=== PATIENT | male | born 1935 | race African-American/Black ===

== ENCOUNTER 2016-11-26 08:34 | Day surgery (SDC) | payer OTHER ==
[2016-11-25 15:22] VITALS: BMI 26.9
--- NOTE | 2016-11-26 11:46 | HP ---
History & Physical Update - History History: No Change - Physical Physical: No Change - Assessment Assessment: No Change - Plan Plan: No Change (Patient presents for temporal artery biopsy with Dr. Bull on 11/26/16. There are no changes from the H&P performed by Dr. Munguia on 11/24/16, present in the paper chart.)
[2016-11-26] MEDS ORDERED: PROPOFOL 20 ML ONE ×2 (12:18)
[2016-11-26] MEDS ORDERED: ONDANSETRON 4 MG/2 ML VIAL IVPUSH PRN (12:27)
[2016-11-26] MEDS ORDERED: oxyCODONE HCL 5 MG TABLET PO PRN (12:27)
[2016-11-26] MEDS ORDERED: DEXAMETHASONE SOD PHOSPHATE 4 MG/1 ML VIAL ONE (12:29)
[2016-11-26] MEDS ORDERED: KETOROLAC TROMETHAMINE 30 MG/1 ML VIAL ONE (12:29)
[2016-11-26] MEDS ORDERED: LACTATED RINGERS SOLUTION 1,000 ML IV SCH (12:30)
[2016-11-26] MEDS ORDERED: LIDOCAINE HCL 1%, 10 MG/ML (20ML VIAL) IJ ONE (12:55)
--- NOTE | 2016-11-26 13:16 | HP ---
Admitting History and Physical - Admission History of Present Illness: 81 year old male referred by Dr. Hernandez Munguia for possible temporal arteritis. He is a 81 yo male with compliant of right sided headache and pressure behing his right eye. He states his vision was blurry but is better now. He has pain when chewing due to ill-fitting dentures. He denies a history of stroke or TIA. He was started on Prednisone 60 mg/day 2 days ago. History Source: Patient, Medical Record Limitations to Obtaining History: No Limitations - Past Medical History Gastrointestinal: Yes: GERD Endocrine: Yes: Diabetes Mellitus - Smoking History Smoking history: Never smoked Have you smoked in the past 12 months: No Aproximately how many cigarettes per day: 0 - Alcohol/Substance Use Hx Alcohol Use: No Home Medications - Allergies Allergies/Adverse Reactions: Allergies Allergy/AdvReac Type Severity Reaction Status Date / Time No Known Allergies Allergy Verified 11/26/16 09:56 - Home Medications Home Medications: Ambulatory Orders Docusate Sodium [Colace -] 100 mg PO TID #0 capsule 03/14/13 Omeprazole [Prilosec (RX)] 20 mg PO DAILY #0 capsule 03/14/13 Prednisone [Deltasone -] 10 mg PO TID 11/25/16 Metformin HCl [Metformin HCl ER] 500 mg PO DAILY 11/26/16 Oxybutynin Chloride [Ditropan] 15 mg PO DAILY 11/26/16 Tramadol HCl/Acetaminophen [Tramadol-Acetaminophn 37.5-325] 1 each PO DAILY PRN 11/26/16 Physical Examination Vital Signs: Vital Signs Temperature 97.8 F 11/26/16 09:45 Pulse Rate 67 11/26/16 09:45 Respiratory Rate 18 11/26/16 09:45 Blood Pressure 128/72 11/26/16 09:45 O2 Sat by Pulse Oximetry (%) 97 11/26/16 09:49 Constitutional: Yes: No Distress, Calm Eyes: Yes: Conjunctiva Clear, EOM Intact HENT: Yes: Normocephalic Neck: Yes: Supple Cardiovascular: Yes: Regular Rate and Rhythm Respiratory: Yes: Regular Gastrointestinal: Yes: Normal Bowel Sounds Edema: No Problem List - Problems (1) Temporal arteritis Assessment/Plan: Elderly man with headache and elevated ESR. Plan biopsy of right temporal artery. Code(s): M31.6 - OTHER GIANT CELL ARTERITIS
[2016-11-26] MEDS ORDERED: ACETAMINOPHEN 325 MG TABLET (FP) PO PRN (13:17)
--- NOTE | 2016-11-26 13:34 | OP ---
Operative Note - Note: Operative Date: 11/26/16 Pre-Operative Diagnosis: R/O temporal arteritis Operation: Biopsy right temporal artery Findings: Tortuous dilated artery. Post-Operative Diagnosis: Same as Pre-op Surgeon: Terell Thomas Anesthesiologist/BUFFER MACHINE: Carolina Graves Anesthesia: Fractional Estimated Blood Loss (mls): 10 Operative Report Dictated: Yes
[2016-11-26 16:25] VITALS: TEMP 97.6
[2016-11-26] MEDS ORDERED: ACETAMINOPHEN 325 MG TABLET (FP) ONE (17:34)
[2016-11-26 18:22] VITALS: BP 134/78; PULSE 54
--- NOTE | 2016-11-27 10:28 | OP ---
DATE OF OPERATION: 11/26/2016 SURGEON: Terell Loya MD PROCEDURE: Biopsy, right superficial temporal artery. PREOPERATIVE DIAGNOSIS: Rule out temporal arteritis. POSTOPERATIVE DIAGNOSIS: Rule out temporal arteritis. ANESTHESIA: Fractional. ANESTHESIOLOGIST: DELFIN Graves OPERATIVE FINDINGS: The superficial temporal artery was tortuous and somewhat dilated. OPERATIVE PROCEDURE: Following routine patient identification with site and side verification, intravenous sedation was established. The right alevism was prepped with ChloraPrep. Xylocaine 1% was infiltrated over the palpable pulse in the temporal artery. Skin incision was made over the vessel and carried down through the subcutaneous tissues, using cautery for hemostasis. The artery was carefully dissected. All side branches were ligated with silk ties and divided. The vein segment was then ligated proximally and distally, and the intervening portion excised and sent to pathology. The wound was irrigated and closed with interrupted suture of 4-0 Vicryl on the subcutaneous tissues and running subcuticular suture of 4-0 Biosyn on the skin. Dermabond glue was applied as a dressing. The patient was taken to the recovery room in stable condition. TERELL LOYA M.D. [id number]
--- NOTE | 2016-11-27 12:17 | PATH ---
Surgical Pathology Report Patient Name: EDWIN MCCLELLAND Med. Rec. #: [id number] /Age/Gender: 1935 (Age: 81) / M Account: [id number] Location: [facility] Taken: 11/26/2016 Received: 11/26/2016 Reported: 11/27/2016 Physicians: Terell Thomas M.D. 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 MULTIPLE LEVELS EXAMINED. Electronically Signed Zain Silva M.D. Gross Description Received in formalin, labeled "right temporal artery biopsy" is a 2.6 cm in length temporal artery biopsy. The specimen is serially sectioned and entirely submitted in 2 cassettes. DL/11/26/2016 saudi/11/26/2016
== END 2016-11-26 17:45 | disposition home or self-care (01) ==
LOC: JASU-SURG 08:34
PROVIDERS: ATTEND Surgery
PROC: 03BS0ZX Excision of Right Temporal Artery, Open Approach, Diagnostic (ICD-10-PCS; principal; 2016-11-26 12:00)
DX: M31.6 Other giant cell arteritis (principal)
CPT/HCPCS: 88305-TC; 94760

== ENCOUNTER 2017-05-14 22:00 | Emergency (ER) | payer OTHER ==
[2017-05-14 22:07] VITALS: BMI 26.9
[2017-05-14 23:45] LABS: BASOPHIL 0.3 % (0-2.0); EOSINOPHIL 0.4 % (0-4.5); MCH 33.2 pg (25.7-33.7); MCHC 33.5 g/dl (32.0-35.9); MEAN CELL VOLUME 99.3 fl (80-96); MEAN PLT VOLUME 10.2 fl (7.5-11.1); NEUTROPHILS 63.9 % (42.8-82.8); PLATELET COUNT 146 K/MM3 (134-434); RDW 12.5 % (11.9-15.9); WHITE BLOOD COUNT 6.9 K/mm3 (4.0-10.0)
[2017-05-15 00:12] LABS: ALBUMIN 3.2 g/dl (3.4-5.0); ANION GAP 7 (8-16); BILIRUBIN,TOTAL 0.5 mg/dL (0.2-1.0); CALCIUM 8.2 mg/dL (8.5-10.1); CO2 28 mmol/L (21-32); CREATININE 1.2 mg/dL (0.7-1.3); GLUCOSE,RANDOM 113 mg/dL (74-106); SGPT/ALT 17 U/L (12-78); TOT PROT 6.8 g/dl (6.4-8.2)
[2017-05-15 00:22] LABS: ALK PHOS 95 U/L (45-117); SGOT/AST 24 U/L (15-37)
[2017-05-15 00:23] LABS: TROPONIN I < 0.02 ng/ml (0.00-0.05)
--- NOTE | 2017-05-15 00:55 | PDOC ---
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 Patient was seen by Dr. Mcarthur and Rx: Carbamazepine 100mg, Tramadol 37.5-325mg prn with no significant improvement. Patient states headache comes and goes, and that Dr. Mcarthur is requesting CT-Scan of Head. Patient also c/o swelling to face after taking medications today but is unsure which medications caused swelling. Denies trouble breathing, cough, tongue swelling, CP, Abd pain, n/v/d, or any other complaints at this time. Severity: mild Modifying Factors: worse with: cold therapy, eating, immobilization, medication , movement, rest, other Associated Symptoms: denies: denies symptoms, chest pain, cough, diaphoresis, fever/chills, headaches, loss of appetite, malaise, nausea/vomiting, rash, seizure, shortness of breath, syncope, weakness, other Aspirin Received prior to arrival: No: no aspirin today, unknown, 81 mg x 1, 81 mg x 2, 81 mg x 3, 81 mg x 4, 325 mg x 1, provided at home, provided by EMS, provided by ED Past History - Travel Traveled outside of the country in the last 30 days: No Close contact w/someone who was outside of country & ill: No - Past Medical History Allergies/Adverse Reactions: Allergies Allergy/AdvReac Type Severity Reaction Status Date / Time No Known Allergies Allergy Verified 05/14/17 22:05 Home Medications: Ambulatory Orders Oxybutynin Chloride [Ditropan] 15 mg PO DAILY 11/26/16 Tramadol HCl/Acetaminophen [Tramadol-Acetaminophn 37.5-325] 1 each PO DAILY PRN 11/26/16 Carbamazepine 100 mg PO BID 05/14/17 Gabapentin 300 mg PO TID 05/14/17 Famotidine [Pepcid -] 40 mg PO BID #14 tablet 05/15/17 Prednisone 10 mg PO ASDIR #21 tablet 05/15/17 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) Cancer: Yes (prostate w/ seeds) GI Disorders: Yes (DIVERTICULOSIS;GASTRITIS;REFLUX) HTN: Yes Suicide Attempt (Hx): No - Surgical History Appendectomy: Yes () - Psycho/Social/Smoking Cessation Hx Anxiety: No Suicidal Ideation: No Smoking Status: No Smoking History: Never smoked Have you smoked in the past 12 months: No Number of Cigarettes Smoked Daily: 0 Hx Alcohol Use: No Drug/Substance Use Hx: No Substance Use Type: None Hx Substance Use Treatment: No Review of Systems - Review of Systems Able to Perform ROS?: Yes Is the patient limited Jamaican proficient: No HEENTM: Yes: Other (Facial Swelling) Respiratory: No: Shortness of Breath, Stridor, Wheezing Cardiac (ROS): No: Chest Pain, Lightheadedness, Palpitations, Syncope, Chest Tightness ABD/GI: No: Abdominal Distended, Constipated, Diarrhea, Nausea, Poor Appetite, Poor Fluid Intake, Vomiting, Abdominal cramping : No: Dysuria, Frequency, Flank Pain, Hematuria Musculoskeletal: Yes: Back Pain (Chronic). No: Muscle Pain, Muscle Weakness Integumentary: No: Bruising, Dryness, Erythema, Rash Neurological: Yes: Headache. No: Numbness, Seizure, Tingling, Tremors, Weakness , Ataxia, Dizziness *Physical Exam - Vital Signs Last Vital Signs Temp Pulse Resp BP Pulse Ox 98.4 F 72 18 136/81 98 05/14/17 22:05 05/14/17 22:05 05/14/17 22:05 05/14/17 22:05 05/14/17 22:05 - Physical Exam General Appearance: Yes: Nourished, Appropriately Dressed, Mild Distress. No: Apparent Distress, Moderate Distress, Severe Distress HEENT: positive: EOMI, MINISTERIO, Normal ENT Inspection, Normal Voice, Symmetrical, TMs Normal, Pharynx Normal. negative: Pharyngeal Erythema, Tonsillar Exudate, Tonsillar Erythema, Nasal Congestion, Rhinorrhea, TM Bulging, TM Dull, TM Erythema Neck: positive: Trachea midline, Supple. negative: Decreased range of motion, Stridor, Lymphadenopathy (R), Lymphadenopathy (L) Respiratory/Chest: positive: Lungs Clear, Normal Breath Sounds. negative: Chest Tender, Respiratory Distress, Accessory Muscle Use, Labored Respiration, Rapid RR Cardiovascular: positive: Regular Rhythm, Regular Rate Gastrointestinal/Abdominal: positive: Normal Bowel Sounds, Soft. negative: Distended, Guarding, Rebound, Tenderness Musculoskeletal: positive: Normal Inspection. negative: CVA Tenderness, Vertebral Tenderness Extremity: positive: Normal Capillary Refill, Normal Inspection, Normal Range of Motion. negative: Pedal Edema, Swelling, Calf Tenderness, Erythema, Inflammation Integumentary: positive: Normal Color, Dry, Warm Neurologic: positive: teacher drama II-XII NML intact, Fully Oriented, Alert, Normal Mood/ Affect, Normal Response, Motor Strength 03/06 ED Treatment Course - LABORATORY CBC & Chemistry Diagram: 05/14/17 23:30 05/14/17 23:30 - ADDITIONAL ORDERS Additional order review: Laboratory Results 05/14/17 23:30 Sodium 140 Potassium 4.5 Chloride 105 Carbon Dioxide 28 Anion Gap 7 L BUN 22 H D Creatinine 1.2 Creat Clearance w eGFR 57.82 Random Glucose 113 H Calcium 8.2 L Total Bilirubin 0.5 D AST 24 D ALT 17 Alkaline Phosphatase 95 Creatine Kinase 243 Troponin I < 0.02 Total Protein 6.8 Albumin 3.2 L 05/14/17 23:30 RBC 3.47 L MCV 99.3 H MCHC 33.5 RDW 12.5 MPV 10.2 Neutrophils % 63.9 D Lymphocytes % 20.9 D Monocytes % 14.5 H D Eosinophils % 0.4 D Basophils % 0.3 - RADIOLOGY Radiology Studies Ordered: Category Date Time Status HEAD CT WITHOUT CONTRAST [CT] Stat CT Scan 05/15/17 00:02 Taken *DC/Admit/Observation/Transfer Diagnosis at time of Disposition: Headache Qualifiers: Headache type: tension-type Headache chronicity pattern: acute headache Intractability: not intractable Qualified Code(s): G44.209 - Tension-type headache, unspecified, not intractable Allergic reaction Qualifiers: Encounter type: initial encounter Qualified Code(s): T78.40XA - Allergy, unspecified, initial encounter - Discharge Dispostion Disposition: HOME Condition at time of disposition: Improved Admit: No - Prescriptions Prescriptions: Famotidine [Pepcid -] 40 mg PO BID #14 tablet Prednisone 10 mg PO ASDIR #21 tablet - Patient Instructions Printed Discharge Instructions: DI for General Allergic Reactions, DI for Headache Additional Instructions: FOLLOW UP WITH DR. MCARTHUR. CALL TO SCHEDULE APPOINTMENT. TAKE MEDICATIONS PRESCRIBED. RETURN IF SYMPTOMS WORSEN OR ANY CONCERNS FOR FURTHER EVALUATION. APPLY COOL WASHCLOTH TO AFFECTED AREA. Print Language: [place]
[2017-05-15] MEDS ORDERED: SODIUM CHLORIDE 1,000 ML IV STA (01:34)
[2017-05-15] MEDS ORDERED: FAMOTIDINE 20 MG/50 ML IVPB 50 ML IVPB ONE ×2 (01:34→02:17)
[2017-05-15] MEDS ORDERED: methylPREDNISolone NA SUCC 125 MG/2 ML VIAL IVPB ONE (01:34)
[2017-05-15] MEDS ORDERED: methylPREDNISolone NA SUCC 125 MG/2 ML VIAL ONE (02:17)
[2017-05-15] MEDS ORDERED: ACETAMINOPHEN 500 MG TABLET (FP) PO ONE (03:08)
[2017-05-15] MEDS ORDERED: ACETAMINOPHEN 325 MG TABLET (FP) ONE (03:32)
[2017-05-15 06:28] VITALS: BP 141/68; PULSE 89; TEMP 98.1
== END 2017-05-15 03:36 | disposition home or self-care (01) ==
LOC: JER 22:00
PROC: 3E033GC Introduction of Other Therapeutic Substance into Peripheral Vein, Percutaneous Approach (ICD-10-PCS; principal; 2017-05-14)
PROC: 3E033GC Introduction of Other Therapeutic Substance into Peripheral Vein, Percutaneous Approach (ICD-10-PCS; 2017-05-14)
PROC: 3E0333Z Introduction of Anti-inflammatory into Peripheral Vein, Percutaneous Approach (ICD-10-PCS; 2017-05-14)
DX: G44.209 Tension-type headache, unspecified, not intractable (principal); R60.0 Localized edema; T50.995A Adverse effect of other drugs, medicaments and biological substances, initial encounter; Y92.038 Other place in apartment as the place of occurrence of the external cause; I10 Essential (primary) hypertension; E53.8 Deficiency of other specified B group vitamins; Z85.46 Personal history of malignant neoplasm of prostate
CPT/HCPCS: 36415; 70450-TC; 80053; 82550; 82553; 84484; 85025; 85651; 99283-25

== ENCOUNTER 2017-06-12 19:32 | Inpatient (IN) | payer OTHER ==
--- NOTE | 2017-06-12 20:47 | PDOC ---
History of Present Illness - General Chief Complaint: Allergic Reaction Stated Complaint: ALLERGIC REACTION Time Seen by Provider: 06/12/17 19:46 History Source: Patient Exam Limitations: No Limitations - History of Present Illness Initial Comments: This is an 81 yo male with h/o headaches and right temporal artery biopsy (in April 2017) who p/w worsening right forehead and bilateral eyelid swelling for the past two days. The swollen right forehead is painful and warm, and he also notes a right-sided headache, blurry vision, and eye tearing. He was seen here in the ED on 05/15/17 for similar swelling which he believed was an allergic reaction to carbamazepine or tramadol, which he was taking in May for newly diagnosed headaches. He had a head CT which showed frontal swelling and diffuse sinusitis with air fluid levels. He was prescribed famotidine and prednisone and instructed to follow up with his PCP. He saw an midlevel provider last week and believes that everything was normal at this appointment, and he saw his PCP two days ago for increasing pain to the forehead. He was prescribed Augmentin and Bactrim for severe sinusitis and possible cellulitis, and the patient notes that despite taking these antibiotics his swelling has increased over the past 2 -3 days. He believes that the forehead swelling originally started with a bug bite that may have become infected. He continues to take tramadol and the antibiotics, but is not taking any other medications. Tonight he denies any additional rash, nausea, vomiting, diarrhea, constipation, throat swelling, tongue swelling, shortness of breath, chest pain, or other symptoms. Past History - Past Medical History Allergies/Adverse Reactions: Allergies Allergy/AdvReac Type Severity Reaction Status Date / Time ketorolac tromethamine Allergy Verified 06/12/17 19:38 [From Toradol] Home Medications: Ambulatory Orders Tramadol HCl/Acetaminophen [Tramadol-Acetaminophn 37.5-325] 1 each PO DAILY PRN 11/26/16 Amoxicillin - [Amoxicillin 875mg Tablet -] 875 mg PO BID 06/12/17 Famotidine [Pepcid -] 40 mg PO BID 06/12/17 Sulfamethoxazole/Trimethoprim [Bactrim DS -] 1 tab PO BID 06/12/17 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) Cancer: Yes (prostate w/ seeds) GI Disorders: Yes (DIVERTICULOSIS;GASTRITIS;REFLUX) HTN: Yes Suicide Attempt (Hx): No - Surgical History Appendectomy: Yes () - Psycho/Social/Smoking Cessation Hx Anxiety: No Suicidal Ideation: No Smoking Status: No Smoking History: Never smoked Have you smoked in the past 12 months: No Number of Cigarettes Smoked Daily: 0 Hx Alcohol Use: No Drug/Substance Use Hx: No Substance Use Type: None Hx Substance Use Treatment: No *Physical Exam - Vital Signs Last Vital Signs Temp Pulse Resp BP Pulse Ox 98.8 F 90 20 140/62 99 06/12/17 19:34 06/12/17 19:34 06/12/17 19:34 06/12/17 19:34 06/12/17 20:12 - Physical Exam General Appearance: Yes: Nourished, Appropriately Dressed, Mild Distress, Other (conversive but some difficulty conveying recent medical history, accompanied at bedside by his daughter) HEENT: positive: EOMI, MINISTERIO, Normal Voice, Nasal Congestion, Rhinorrhea, Sinus Tenderness, Hearing Grossly Normal, Other (right frontal soft tissue swelling with overlying warmth but no erythema, mild periorbital edema bilaterally, pterygium to bilateral eyes). negative: Pharyngeal Erythema, Lesions Neck: positive: Trachea midline, Supple. negative: Tender, Rigid, Lymphadenopathy (R), Lymphadenopathy (L) Respiratory/Chest: positive: Lungs Clear, Normal Breath Sounds. negative: Respiratory Distress, Crackles, Rhonchi, Stridor, Wheezing Cardiovascular: positive: Regular Rhythm, Regular Rate. negative: Murmur Gastrointestinal/Abdominal: positive: Normal Bowel Sounds, Soft. negative: Tender, Organomegaly, Pulsatile Mass, Guarding Musculoskeletal: positive: Normal Inspection. negative: Decreased Range of Motion, Vertebral Tenderness Extremity: positive: Normal Capillary Refill, Normal Inspection, Normal Range of Motion. negative: Tender, Cyanosis Integumentary: positive: Normal Color, Dry, Warm. negative: Erythema, Rash, Bruising Neurologic: positive: child and family services worker II-XII NML intact, Fully Oriented, Alert, Normal Mood/ Affect, Normal Response, Motor Strength 5/5 ED Treatment Course - LABORATORY CBC & Chemistry Diagram: 06/12/17 20:55 06/12/17 21:00 Medical Decision Making - Medical Decision Making 81 yo male with h/o prostate CA (2006), headaches, back pain who p/w facial swelling x2-3 days Recently seen in [facility] ED (05/15/17) for the same facial swelling, had head CT showing frontal hematoma. Also had sinusitis involving bilateral frontal and ethmoid sinuses, and right maxillary sinus with air-fluid levels. On exam today he has a soft but tender raised area of soft tissue on the right frontal area involving right eyebrow. Also with mild periorbital edema without erythema, and bilateral conjunctivitis with drainage. DDX includes abscess, sinusitis, mucormycosis, Pott puffy tumor, glaucoma, preseptal cellulitis, periorbital cellulitis, 06/12/17 20:[address] Hernandez Munguia who notes he saw patient in clinic this week with forehead swelling. He reviewed the head CT from 05/15 and was concerned for severe sinusitis and cellulitis. Prescribed Augmentin and Bactrim at that time. 06/12/17 21:39 CBCD shows no leukocytosis. CMP returns with BUN 27 and Cr 1.5 which is higher than previously documented for the patient. 500 cc NS bolus is ordered for the patient. 06/12/17 23:03 ESR is 60 which is similar to the value from 05/15/17 (was 55 at that time). Pt notes pain overlying the forehead swelling and Tylenol 1 gm is ordered. Hospitalist (Julio) is microblogged. 06/12/17 23:53 Consult ordered to ID Dr. Garg. 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 Janessa Sandy, attest that this document has been prepared under my direction and personally reviewed by me in its entirety. I further attest, that it accurately reflects all work, treatment, procedures and medical decision -making performed by me.
[2017-06-12] MEDS ORDERED: AMPICILLIN NA/SULBACTAM NA 1.5 GM in SODIUM CHLORIDE 100 ML IVPB ONE (21:13)
[2017-06-12] MEDS ORDERED: VANCOMYCIN 1,000 MG in DEXTROSE 5%-WATER - 250 ML IVPB ONE (21:15)
[2017-06-12] MEDS ORDERED: VANCOMYCIN 1 GRAM (PRE-DOCKED) 250 ML IVPB ONE (21:20)
--- NOTE | 2017-06-12 21:28 | PDOC ---
Attending Attestation - Resident Resident Name: Janessa Sandy - HPI HPI: 06/12/17 21:23 Pt comes with swelling to forehead, redness and warmth. Pt's daughter states that he must be allergic to his meds, but he had a red spot (?bug bite) to the forehead 3 weeks ago, got worse then better and now worse. Pt has facial cellulitis on the forehead, spreading to the nasal bridge and the septum as well as his right eyelid. Pt has no pain in the orbit, or pain with movement of his eyes. - Physicial Exam PE: 06/12/17 21:25 agree with resident exam - Medical Decision Making 06/12/17 21:26 Pt will be treated with vancomycin and unasyn and he will be admitted to the hospitalist service for IV treatment of his infection. Pt will also have a CT of orbits and sinuses to r/o pus collection. Conversation with his PMD Ezra revealed that pt's temporal artery biopsy was normal and never revealed arteritis, however he was on prednisone course for a couple of weeks 06/13/17 01:39 Pt will be admitted to the hospitalist.
[2017-06-12 21:29] LABS: BASOPHIL 0.4 % (0-2.0); EOSINOPHIL 0.3 % (0-4.5); MCH 33.9 pg (25.7-33.7); MEAN CELL VOLUME 99.9 fl (80-96); NEUTROPHILS 62.9 % (42.8-82.8); PLATELET COUNT 159 K/MM3 (134-434); RDW 12.9 % (11.9-15.9); WHITE BLOOD COUNT 5.4 K/mm3 (4.0-10.0)
[2017-06-12 21:34] LABS: ALBUMIN 3.4 g/dl (3.4-5.0); ANION GAP 7 (8-16); CO2 28 mmol/L (21-32); GLUCOSE,RANDOM 116 mg/dL (74-106); SGPT/ALT 24 U/L (12-78)
[2017-06-12 21:37] LABS: ALK PHOS 109 U/L (45-117); BILIRUBIN,TOTAL 0.4 mg/dL (0.2-1.0); CREATININE 1.5 mg/dL (0.7-1.3); SGOT/AST 17 U/L (15-37)
[2017-06-12] MEDS ORDERED: SODIUM CHLORIDE 500 ML IV STA (21:45)
[2017-06-12] MEDS ORDERED: ACETAMINOPHEN 500 MG TABLET (FP) PO ONE (23:02)
[2017-06-12] MEDS ORDERED: ACETAMINOPHEN 325 MG TABLET (FP) ONE (23:06)
--- NOTE | 2017-06-13 00:29 | HP ---
CHIEF COMPLAINT: R forehead and eyelid swelling for 2 days PCP: HISTORY OF PRESENT ILLNESS: 81 y/o M with h/o headaches, prostate CA (2006), R temporal a. biopsy, who presented to ED with R forehead and b/l eyelid swelling for past 2 days. As per pt and daughter, in March, pt experienced increased pressure behind his eyes. He saw Dr. Munguia and a R temporal artery biopsy was done. Pt was given carbamezipine and soon after, he developed R sided forehead swelling. Pt thought this was most likely an allergy to medication. In April, pt developed a similar headache and R sided forehead swelling, came to the [facility] ED and was given benadryl and had a CT scan done of head, which was normal as per patient. In May, pt developed swelling once again after taking tramadol. He thus decided to see Dr. Austin earlier this week, who reviewed his most recent head CT 05/15, and he was concerned for sinusitis and cellulitis. Pt decided to come to ED because his R forehead and eyelid swelling still persisted for past 2 days. During these episodes, pt endorses blurry vision, frontal headache, dizziness, runny nose, productive cough with clear mucus. Denies N/V, dysuria, SOB, head trauma, ear infections. ER course was notable for: (1) NS 500mls (2) Vancomycin 1g one time (3) Unasyn 1.5 grams 100mls (4) Tylenol 1gram PO once Recent Travel: none PAST MEDICAL HISTORY: h/o headaches, prostate cancer (2006), GERD, diverticulosis PAST SURGICAL HISTORY: R temporal a. biopsy, b/l cataracts (30 yrs ago), appendectomy, hernia repair Social History: Smoking: denies Alcohol: denies Drugs: denies Family History: mother had diabetes Allergies ketorolac tromethamine [From Toradol] Allergy (Verified 06/12/17 19:38) HOME MEDICATIONS: Home Medications Medication Instructions Recorded Tramadol HCl/Acetaminophen 1 each PO DAILY PRN 11/26/16 [Tramadol-Acetaminophn 37.5-325] Amoxicillin - [Amoxicillin 875mg 875 mg PO BID 06/12/17 Tablet -] Famotidine [Pepcid -] 40 mg PO BID 06/12/17 Sulfamethoxazole/Trimethoprim 1 tab PO BID 06/12/17 [Bactrim DS -] REVIEW OF SYSTEMS CONSTITUTIONAL: Absent: fever, chills, diaphoresis, generalized weakness, malaise, loss of appetite, weight change HEENT: +nasal congestion, +R sided eye pain, +blurry vision Absent: rhinorrhea, nasal congestion, throat pain, throat swelling, difficulty swallowing, mouth swelling, ear pain, eye pain, visual changes CARDIOVASCULAR: Absent: chest pain, syncope, palpitations, irregular heart rate, lightheadedness , peripheral edema RESPIRATORY: Absent: cough, shortness of breath, dyspnea with exertion, orthopnea, wheezing, stridor, hemoptysis GASTROINTESTINAL: Absent: abdominal pain, abdominal distension, nausea, vomiting, diarrhea, constipation, melena, hematochezia GENITOURINARY: Absent: dysuria, frequency, urgency, hesitancy, hematuria, flank pain, genital pain MUSCULOSKELETAL: Absent: myalgia, arthralgia, joint swelling, back pain, neck pain SKIN: Absent: rash, itching, pallor HEMATOLOGIC/IMMUNOLOGIC: Absent: easy bleeding, easy bruising, lymphadenopathy, frequent infections ENDOCRINE: Absent: unexplained weight gain, unexplained weight loss, heat intolerance, cold intolerance NEUROLOGIC: +dizziness Absent: headache, focal weakness or paresthesias, dizziness, unsteady gait, seizure, mental status changes, bladder or bowel incontinence PSYCHIATRIC: Absent: anxiety, depression, suicidal or homicidal ideation, hallucinations. PHYSICAL EXAMINATION Vital Signs - 24 hr 06/12/17 06/12/17 19:34 20:12 Temperature 98.8 F Pulse Rate 90 Respiratory 20 Rate Blood Pressure 140/62 O2 Sat by Pulse 96 99 Oximetry (%) GENERAL: Awake, alert, and fully oriented, in no acute distress. HEAD: R sided forehead swelling, mild erythema, warm EYES: Pupils equal, round and reactive to light, extraocular movements intact, sclera anicteric, injected conjunctivae, periorbital edema. EARS, NOSE, THROAT: Ears normal, runny nose, edematous b/l on both sides of nose , maxillary sinuses, frontal sinus tender to palpation, oropharynx clear without exudates. NECK: Normal range of motion, supple without lymphadenopathy, JVD, or masses. LUNGS: Breath sounds equal, clear to auscultation bilaterally. mild wheezing b/l , and no crackles. No accessory muscle use. HEART: Regular rate and rhythm, normal S1 and S2 without murmur, rub or gallop. ABDOMEN: Soft, nontender, not distended, normoactive bowel sounds, no guarding, no rebound, no masses. No hepatomegaly or splenomegaly. MUSCULOSKELETAL: Normal range of motion at all joints. No bony deformities or tenderness. No CVA tenderness. burning elicited bilaterally in lower extremities on light touch UPPER EXTREMITIES: 2+ radial pulses, warm, well-perfused. No cyanosis. No clubbing. No peripheral edema. LOWER EXTREMITIES: 2+ posterior tibial pulses, warm, well-perfused. No calf tenderness. No peripheral edema. NEUROLOGICAL: Cranial nerves II-XII intact. Laboratory Results - last 24 hr 06/12/17 06/12/17 06/12/17 20:55 21:00 21:00 WBC 5.4 RBC 3.67 L Hgb 12.5 Hct 36.7 MCV 99.9 H MCH 33.9 H MCHC 34.0 RDW 12.9 Plt Count 159 MPV 10.0 Neutrophils % 62.9 Lymphocytes % 16.5 D Monocytes % 19.9 H Eosinophils % 0.3 Basophils % 0.4 ESR 60 H Sodium 143 Potassium 4.3 Chloride 108 H Carbon Dioxide 28 Anion Gap 7 L BUN 27 H D Creatinine 1.5 H D Creat Clearance w eGFR 44.69 Random Glucose 116 H Calcium 9.0 Total Bilirubin 0.4 AST 17 D ALT 24 D Alkaline Phosphatase 109 Total Protein 7.0 Albumin 3.4 ASSESSMENT/PLAN: 81 y/o M with h/o headaches, prostate CA (2006), R temporal a. biopsy, who presented to ED with R forehead and b/l eyelid swelling for past 2 days. Pt placed in obs for possible facial cellulitis and sinusitis. #Facial cellulitis and sinusitis -afebrile, without leukocytosis or tachycardia- not sepsis -Received Vancomycin 1g one time, Unasyn 1.5 grams 100mls, Tylenol 1gram PO once in ED -Sinus/orbital CT: superficial soft tissue edema seen along forehead b/l, more on R, extensive paranasal sinus disease -F/u blood cx -Continue Clindamycin 300mg IVPB q6h -Continue Mucinex 1 tablet PO BID -Warm compresses on affected area #Headache -Tylenol 650mg q6h PRN #DAR secondary to volume depletion -BUN/Cr 27/1.5 -IV LR @ 100 mls/hr -F/u BMP -F/u Urine Na, creatinine, serum and urine osmolality to calc FEna #GERD -Continue home med Pepcid 40 mg PO BID #Burning b/l in lower extremities -F/u HbA1c level F/E/N -IV LR @ 100mls/hr -Monitor electrolytes -Sodium controlled diet Disposition obs on med-surg -Need to verify home medications Visit type - Emergency Visit Emergency Visit: Yes ED Registration Date: 06/13/17 Care time: The patient presented to the Emergency Department on the above date and was hospitalized for further evaluation of their emergent condition. - New Patient This patient is new to me today: Yes Date on this admission: 06/13/17 - Critical Care Critical Care patient: No
--- NOTE | 2017-06-13 00:29 | PN ---
Teaching Attending Note Name of Resident: Chaparrita Fisher ATTENDING PHYSICIAN STATEMENT I saw and evaluated the patient. I reviewed the resident's note and discussed the case with the resident. I agree with the resident's findings and plan as documented. SUBJECTIVE: 81 yo gentleman returning to ED for re-evaluation of headache, facial swelling, blurred vision of right eye. Evaluated 05/14 and diagnosed with cellulitis and severe sinus infection, given Augmentin and Bactrim PO as well as prednisone taper. Returning after these treatments were ineffective. Followed outpatient by PMD and ENT and recently underwent temporal artery biopsy 04/2017 which was negative. Currently denies chest pain, SOB, palpitations, abdominal or G/U complaints. Endorses right sided headache, forehead swelling, blurry vision of right eye, nasal congestion. Was given IV Vancomycin and Unasyn while in ED prior to admission. OBJECTIVE: - Vital Signs Temp: 98.8 BP: 140/62 HR: 90 RR: 20 spO2: 99% RA - Physical Examination General: Alert, oriented male in mild distress HEENT: Nasal turbinate edema, edentulous, bilateral conjunctivitis ; No oropharyngeal lesions noted Neck: No JVD or Thyromegaly CV: RRR, S1 and S2 Resp: CTA anteriorly Abd: Soft, NTTP, ND, BS+ Ext: Nonedematous, symmetrically appearing Skin: Edema, erythema forehead that is warm to touch, R>L, extends to eyelids - Imaging CT Sinus/Orbits reviewed ( Soft tissue swelling bilateral forehead R>L, no orbital pathology noted ; R>L sinusitis - Labs BUN/Cr: 27/1.5 K+: 4.3 H/H: 12.5/36.7 w/ macrocytosis ESR 60 ( 55 earlier in month ) ASSESSMENT Cellulitis Forehead - refractory to outpatient PO abx course DAR Essential HTN Chronic Macrocytic Anemia - 2/2 known B12 Deficiency presumably GERD h/o Prostate Ca PLAN Admit for observation on gen/surgery floor Start IV Abx w/ Clindamycin ; IVF hydration w/ LR @ 100cc/h overnight PO Tylenol prn ; Oxycodone 5mg q4h prn pain management ; Resume outpatient medications in addition to pain regimen Repeat CBC and BMP in AM to monitor renal function and electrolytes F/U Pending blood cultures obtained in ED DISPOSITION Anticipate discharge in <48h if clinically improves with IV abx. Will be discharged on PO abx regimen for 7-10d, possibly Augmentin when clinically able.
--- NOTE | 2017-06-13 01:45 | PDOC ---
*Physical Exam - Vital Signs Last Vital Signs Temp Pulse Resp BP Pulse Ox 98.8 F 90 20 140/62 99 06/12/17 19:34 06/12/17 19:34 06/12/17 19:34 06/12/17 19:34 06/12/17 20:12 ED Treatment Course - LABORATORY CBC & Chemistry Diagram: 06/12/17 20:55 06/12/17 21:00 - ADDITIONAL ORDERS Additional order review: Laboratory Results 06/12/17 21:00 Sodium 143 Potassium 4.3 Chloride 108 H Carbon Dioxide 28 Anion Gap 7 L BUN 27 H D Creatinine 1.5 H D Creat Clearance w eGFR 44.69 Random Glucose 116 H Calcium 9.0 Total Bilirubin 0.4 AST 17 D ALT 24 D Alkaline Phosphatase 109 Total Protein 7.0 Albumin 3.4 06/12/17 20:55 RBC 3.67 L MCV 99.9 H MCHC 34.0 RDW 12.9 MPV 10.0 Neutrophils % 62.9 Lymphocytes % 16.5 D Monocytes % 19.9 H Eosinophils % 0.3 Basophils % 0.4 - RADIOLOGY Radiology Studies Ordered: Category Date Time Status ORBIT CT W/O CONTRAST [CT] Stat CT Scan 06/12/17 21:[address] W/O CONTRAST [CT] Stat CT Scan 06/12/17 21:03 Completed CHEST X-RAY PORTABLE* [RAD] Stat Radiology 06/12/17 22:24 Taken - Medications Given in the ED: ED Medications Discontinued Medications Generic Name Dose Route Start Last Admin Trade Name Freq PRN Reason Stop Dose Admin Acetaminophen 1,000 mg 06/12/17 23:02 06/12/17 23:05 Tylenol - PO 06/12/17 23:03 1,000 mg ONCE ONE Administration Ampicillin Sodium/Sulbactam 100 mls @ 200 mls/hr 06/12/17 21:13 06/12/17 22:35 Sodium 1.5 gm/ Sodium Chloride IVPB 06/12/17 21:42 200 mls/hr ONCE ONE Administration Vancomycin HCl 1,000 mg/ 250 mls @ 250 mls/hr 06/12/17 21:15 06/12/17 21:52 Dextrose IVPB 06/12/17 22:14 250 mls/hr ONCE ONE Administration Protocol Sodium Chloride 500 mls @ 1,000 mls/hr 06/12/17 21:45 06/12/17 22:35 Normal Saline - IV 06/12/17 22:14 1,000 mls/hr ASDIR STA Administration *DC/Admit/Observation/Transfer Diagnosis at time of Disposition: Frontal bone osteomyelitis with subperiosteal abscess, Sinusitis - Discharge Dispostion Condition at time of disposition: Guarded Admit: Yes - Referrals - Patient Instructions - Post Discharge Activity
[2017-06-13] MEDS ORDERED: CLINDAMYCIN IVPB 300 MG in DEXTROSE 5%-WATER - 48 ML IVPB SCH (03:00)
[2017-06-13] MEDS: LACTATED RINGERS SOLUTION 1,000 ML IV SCH (03:10)
--- NOTE | 2017-06-13 03:42 | HP ---
CHIEF COMPLAINT: sinusitis, rhinorrea PCP: Dr. Munguia(informed by ED) HISTORY OF PRESENT ILLNESS: 81 yr old man with hx of prostate ca, hx of headaches, HTN, DM, presents with worsening forehead swelling and sinusitis for past week. Has been having continuos copious discharge from his right nostril. a/w pressure behind his eyes , frontal headaches and productive cough. he was started on bactrim and amoxicillin by PCP. denies facial trauma, vomiting, trouble breathing, chest pain, palpitations, abdominal pain, diarrhea, loss of vision. as per chart review: pt underwent steroid treatment and temporal artery biopsy in Nov 2016 due to elevated ESR and thickened temporal artery suspicious for temporal arteritis, pathology report without evidence of arteritis PHYSICAL EXAMINATION GENERAL: Awake, alert, and fully oriented, in no mild distress HEAD: large tender swelling on right mid forehead extending to nasal bridge, skin intact, no underlying fluctuance. nontender in occiput and parietal region. EYES: Pupils equal, round and reactive to light, extraocular movements intact, sclera injected R>L, conjunctiva clear. edema in b/l upper and lower eyelids EARS, NOSE, THROAT: Ears normal, right opacified nare with continuous thick clear non-bloody, continous non-bloody clear rhinorrhea from right nare without opacification. oropharynx clear without exudates. Moist mucous membranes. LUNGS: Breath sounds equal, clear to auscultation bilaterally. No wheezes, and no crackles. No accessory muscle use. HEART: Regular rate and rhythm, normal S1 and S2 with murmur in rt upper sternal border. ABDOMEN: Soft, nontender, not distended, normoactive bowel sounds, no guarding UPPER EXTREMITIES: 2+ radial pulses, warm, well-perfused. No cyanosis. No clubbing. No peripheral edema. 5/5 hand rubber goods tester water LOWER EXTREMITIES: 1+ dp pulses, warm, well-perfused. No calf tenderness. No peripheral edema. NEUROLOGICAL: Cranial nerves II-XII intact. Normal speech. PSYCHIATRIC: Cooperative. Good eye contact. Appropriate mood and affect. ASSESSMENT/PLAN: 81 year old man with headaches, prostate cancer, HTN, presents with sinusitis and forehead soft tissue edema/cellulitis placed on observation for IV antibiotics and monitoring for orbital edema and ocular changes. #Forehead cellulitis/sinusitis - cleocin 300mg ivpb q6hr for coverage to include mrsa given recent surgical procedure at [facility] - Mucinex 1 tablet po to decrease nasal secretions, avoid nasal sprays - f/u blood cultures - pain control with tylenol - f/u hba1c to r/o DM - ID consulted for further evaluation and need for vancomycin or de-escalation of abx. #DAR likely due to abx use/ or re-renal due to poor po intake -IVF with LR @ 100 mls/hr as sodium is 143, avoid hypernatremia -trend BMP -assess etiology: urine electrolytes, cr, serum and urine osmolality #GERD -Pepcid 40 mg PO BID Diet: Sodium controlled diet DVT; scd's, anticipate short stay, encourage ambulation Visit type - Emergency Visit Emergency Visit: Yes ED Registration Date: 06/13/17 Care time: The patient presented to the Emergency Department on the above date and was hospitalized for further evaluation of their emergent condition. - New Patient This patient is new to me today: Yes Date on this admission: 06/13/17 - Critical Care Critical Care patient: No
[2017-06-13] MEDS: CLINDAMYCIN 300 MG PREMIX IVPB 50 ML IVPB SCH ×2 (03:46→09:49)
[2017-06-13] MEDS: ACETAMINOPHEN 325 MG TABLET (FP) PO PRN ×2 (04:08→21:57)
[2017-06-13 04:26] VITALS: BMI 26.0
[2017-06-13 07:57] LABS: ANION GAP 9 (8-16); CALCIUM 8.2 mg/dL (8.5-10.1); CO2 25 mmol/L (21-32); CREATININE 1.2 mg/dL (0.7-1.3); GLUCOSE,RANDOM 105 mg/dL (74-106)
[2017-06-13 08:08] LABS: MCH 33.4 pg (25.7-33.7); MCHC 33.8 g/dl (32.0-35.9); MEAN CELL VOLUME 98.9 fl (80-96); MEAN PLT VOLUME 9.7 fl (7.5-11.1); PLATELET COUNT 135 K/MM3 (134-434); RDW 12.9 % (11.9-15.9); WHITE BLOOD COUNT 5.3 K/mm3 (4.0-10.0)
--- NOTE | 2017-06-13 08:53 | PN ---
Progress Note (short form) - Note Progress Note: pt states he has had no significant improvement in the pain in his face. states that it started earlier this week and went to PMD on wed received abx ( amoxicillin and bactrim per chart) and had no improvement and came to the ER. c/ o lacrimation of the R eye (no purulent drainage), and pain surrounding the eye and ROSALES with intermittent rhinorrhea. denies photophobia, diplopia, blurred vision, pain with movement with the eye, CP, SOB, fever, chills, sinus tenderness or N/V/C/D. denies any trauma to the face other than R tempopral a bx no bug bites or scratches of the face Current Medications Generic Name Dose Route Start Last Admin Trade Name Freq PRN Reason Stop Dose Admin Acetaminophen 650 mg 06/13/17 01:01 06/13/17 04:08 Tylenol - PO 650 mg Q4H PRN Administration FEVER OR PAIN Guaifenesin 1 tablet 06/13/17 10:00 Mucinex Dm - PO BID RANDEE Lactated Ringer's 1,000 mls @ 100 mls/hr 06/13/17 01:15 06/13/17 03:10 Lactated Ringers Solution IV 100 mls/hr ASDIR RANDEE Administration Clindamycin Phosphate 50 mls @ 100 mls/hr 06/13/17 03:00 06/13/17 03:46 Cleocin 300 Mg Premix Ivpb IVPB 100 mls/hr Q6H-IV RANDEE Administration Last Vital Signs Temp Pulse Resp BP Pulse Ox 99.2 F 60 18 159/84 96 06/13/17 06:25 06/13/17 06:25 06/13/17 06:25 06/13/17 06:25 06/13/17 04:01 General NAD HEENT swelling to the R forehead and R eye, area tender no erythema noted. EOMI. PERRL, no proptosis. mildly injected R eye conjunctiva. no maxillary sinus tenderness, no throat tenderness, no LN CV S1 S2 RRR no murmur/rub/gallop Lungs CTA b/l no wheezing/rales/rhonchi CBCD WBC 5.3 K/mm3 (4.0-10.0) 06/13/17 06:00 RBC 3.62 M/mm3 (4.00-5.60) L 06/13/17 06:00 Hgb 12.1 GM/dL (11.7-16.9) 06/13/17 06:00 Hct 35.8 % (35.4-49) 06/13/17 06:00 MCV 98.9 fl (80-96) H 06/13/17 06:00 MCHC 33.8 g/dl (32.0-35.9) 06/13/17 06:00 RDW 12.9 % (11.9-15.9) 06/13/17 06:00 Plt Count 135 K/MM3 (134-434) 06/13/17 06:00 MPV 9.7 fl (7.5-11.1) 06/13/17 06:00 CMP Sodium 143 mmol/L (136-145) 06/13/17 06:00 Potassium 4.0 mmol/L (3.5-5.1) 06/13/17 06:00 Chloride 109 mmol/L (98-107) H 06/13/17 06:00 Carbon Dioxide 25 mmol/L (21-32) 06/13/17 06:00 Anion Gap 9 (8-16) 06/13/17 06:00 BUN 19 mg/dL (7-18) H D 06/13/17 06:00 Creatinine 1.2 mg/dL (0.7-1.3) 06/13/17 06:00 Creat Clearance w eGFR 44.69 (>60) 06/12/17 21:00 Calcium 8.2 mg/dL (8.5-10.1) L 06/13/17 06:00 Total Bilirubin 0.4 mg/dL (0.2-1.0) 06/12/17 21:00 AST 17 U/L (15-37) D 06/12/17 21:00 ALT 24 U/L (12-78) D 06/12/17 21:00 Alkaline Phosphatase 109 U/L (45-117) 06/12/17 21:00 Total Protein 7.0 g/dl (6.4-8.2) 06/12/17 21:00 Albumin 3.4 g/dl (3.4-5.0) 06/12/17 21:00 A/P 81yo M with PMH prostate ca and R temporal artery bx presented to the ER with forehead and eye swelling 1. Preseptal cellulitis- possible due to chronic sinusitis. based on symptoms and CT results does not appear to have oribtal cellulitis. given Unasyn/vanco in the ER and now on clindamycin. will cont with clindamycin which will treat both infections. ID consulted. f/u cx. monitor for progression. informed pt to notify if he develops blurred vision or pain on movement of the eye 2. DAR- likely due to infection vs dehydration. improved. appears to be at baseline. will d/c ivf 3. elevated BP- likely due to pain. will monitor if persists will start antihypertensives 4. R temporal artery bx- pt does not know results. elevated ESR. call placed out to PMD to obtian information. outpatient follow up 5. prostate ca- not on chemo/rtx 6. DVT ppx- EAM Visit type - Emergency Visit Emergency Visit: Yes ED Registration Date: 06/13/17 Care time: The patient presented to the Emergency Department on the above date and was hospitalized for further evaluation of their emergent condition. - New Patient This patient is new to me today: Yes Date on this admission: 06/13/17 - Critical Care Critical Care patient: No - Discharge Referral Referred to [facility] No
[2017-06-13] MEDS: guaiFENesin/D-METHORPHAN HB 1 EACH TAB.ER.12H PO SCH ×2 (10:51→21:56)
[2017-06-13] MEDS: PANTOPRAZOLE 40 MG TABLET (FP) PO SCH (14:18)
--- NOTE | 2017-06-13 14:19 | PN ---
Progress Note (short form) - Note Progress Note: ID Consult dictated Periorbital/ Facial cellulitis Sinusitis Await c/s Empiric vancomycin/ unasyn ENT evaluation
[2017-06-13] MEDS ORDERED: SODIUM CHLORIDE 100 ML IVPB ONE ×2 (14:22→20:44)
[2017-06-13] MEDS ORDERED: AMPICILLIN NA/SULBACTAM NA 1.5 GM VIAL ONE ×3 (14:22→20:44)
[2017-06-13] MEDS: AMPICILLIN NA/SULBACTAM NA 1.5 GM in SODIUM CHLORIDE 100 ML IVPB SCH ×2 (14:28→21:57)
[2017-06-13] MEDS: VANCOMYCIN 1 GRAM (PRE-DOCKED) 250 ML IVPB SCH (15:41)
--- NOTE | 2017-06-13 16:18 | CONS ---
DATE OF CONSULTATION: DATE OF DICTATION: 06/13/2017 HISTORY OF PRESENT ILLNESS: The patient is an 81-year-old male evaluated for periorbital cellulitis. He is a poor informant and does not give a reliable history. According to the notes, he has had a 2-day history of worsening right forehead pain and swelling, as well as bilateral eyelid swelling. He also reports an associated blurry vision and eye tearing. He had seen his primary care physician and was felt to possibly have an allergic reaction versus sinusitis/early facial cellulitis. He was prescribed Augmentin and Bactrim. He was also seen in consultation by Ophthalmology and reportedly had a negative exam. Despite the antibiotics, he had worsening forehead and periorbital swelling. He presented to the emergency room, where he is now admitted with facial cellulitis. He denies any traumatic injury. According to one of the notes, the findings may have started as a pustule, secondary to a possible insect bite. He was noted in the emergency room to have swelling of the right forehead extending to the nasal bridge, as well as the periorbital areas bilaterally. At the present time, he is awake and alert. He has no complaints of pain. He denies any change in his visual acuity and no complaints of eye pain. Denies any fever or chills. The patient underwent a temporal artery biopsy in the recent past which was reportedly negative. He did receive a course of prednisone. PAST MEDICAL HISTORY: Positive for prostate cancer status post radiation seeds, history of diverticulosis. ALLERGIES: KETOROLAC. MEDICATIONS: Include vancomycin, Unasyn, clindamycin, Protonix. SOCIAL HISTORY: He lives at home. Nonsmoker. Nondrinker. SYSTEMS REVIEW: Neurologic: No loss of consciousness, seizure activity, focal weakness. Cardiac: Negative chest pain or palpitations. Respiratory: Negative cough or sputum production. Gastrointestinal: Negative vomiting or diarrhea. Genitourinary: Negative for urinary tract infection. LABORATORY DATA: White count 5.3, hematocrit 35.8, platelet count 135. ESR 60. Creatinine 1.2. Blood cultures preliminarily negative. CAT scan of the face and orbits performed on June 12, 2017, shows development of superficial soft tissue edema along the forehead bilaterally, right greater than left; extensive paranasal sinus disease, which was increased from previous study; there was complete opacification of the frontal sinuses; [id number] right ethmoid and [id number] left ethmoid chronic sinusitis; mucosal thickening of the right sphenoid sinus; no evidence of bone erosion. PHYSICAL EXAMINATION: General: He is awake and alert. He is not acutely toxic appearing. Vital signs: Temperature 98, T-max 99.8, blood pressure 135/73, pulse 67 and regular, respirations 16 per minute. HEENT: Eyes: Sclerae are anicteric. Face: There is soft tissue swelling involving the forehead, right supraorbital area greater than left. The swelling and erythema extends to the periorbital areas bilaterally. There is tenderness present all over the forehead. Extraocular muscles are intact. His visual acuity appears to be intact. Neck: Supple. No palpable nodes. Heart: Heart sounds S1, S2. Lungs: Clear. Abdomen: Soft and nontender. Extremities: Negative for edema. IMPRESSION: 1. Facial cellulitis/periorbital cellulitis. 2. Pansinusitis. 3. Possible sepsis, secondary to sinus and skin infection. Await cultures. Empiric antibiotic coverage with vancomycin and Unasyn. ENT evaluation. We will follow. Thank you for the kind referral. RAEGAN GRANT M.D. [id number]
[2017-06-14] MEDS: LACTATED RINGERS SOLUTION 1,000 ML IV SCH (01:24)
[2017-06-14] MEDS: VANCOMYCIN 1 GRAM (PRE-DOCKED) 250 ML IVPB SCH ×2 (01:24→13:51)
[2017-06-14] MEDS: AMPICILLIN NA/SULBACTAM NA 1.5 GM in SODIUM CHLORIDE 100 ML IVPB SCH ×4 (03:02→21:23)
[2017-06-14] MEDS: ACETAMINOPHEN 325 MG TABLET (FP) PO PRN (07:09)
[2017-06-14] MEDS ORDERED: PT OWN MED DRAWER 7, Y5N ONE (07:17)
[2017-06-14 08:30] LABS: ANION GAP 8 (8-16); CALCIUM 8.6 mg/dL (8.5-10.1); CO2 27 mmol/L (21-32); CREATININE 1.3 mg/dL (0.7-1.3); GLUCOSE,RANDOM 95 mg/dL (74-106)
[2017-06-14] MEDS ORDERED: SODIUM CHLORIDE 100 ML IVPB ONE ×4 (09:29→20:19)
[2017-06-14] MEDS ORDERED: AMPICILLIN NA/SULBACTAM NA 1.5 GM VIAL ONE ×4 (09:29→20:19)
[2017-06-14] MEDS: PANTOPRAZOLE 40 MG TABLET (FP) PO SCH (09:35)
[2017-06-14] MEDS: guaiFENesin/D-METHORPHAN HB 1 EACH TAB.ER.12H PO SCH ×2 (09:36→21:24)
--- NOTE | 2017-06-14 10:03 | PN ---
Teaching Attending Note Name of Resident: Del Raza ATTENDING PHYSICIAN STATEMENT I saw and evaluated the patient. I reviewed the resident's note and discussed the case with the resident. I agree with the resident's findings and plan as documented. SUBJECTIVE:c/o ROSALES that is not relieved with tylenol. states he usually takes motrin for ROSALES. denies blurred vision, dipplopia, N/V/C/D, CP, SOB, fevr, chills , pain on movement of the eyes. OBJECTIVE: Last Vital Signs Temp Pulse Resp BP Pulse Ox 98.1 F 52 L 18 159/77 95 06/14/17 06:00 06/14/17 06:00 06/14/17 06:00 06/14/17 06:00 06/14/17 04:00 General NAD HEENT EOMI. PERRL, no proptosis. Swelling superior to R eye improved, less tender no maxillary sinus tenderness. CV S1 S2 RRR no murmur/rub/gallop Lungs CTA b/l no wheezing/rales/rhonchi A/P 81yo M with PMH prostate ca and R temporal artery bx presented to the ER with forehead and eye swelling 1. Preseptal cellulitis- possible due to chronic sinusitis. clinically improved. abx switched to Vanco/Unasyn. Bcx reported as negative at 24H. will need prolonged abx course and ENT outpatient follow up 2. ROSALES- likely due to pain. improved with tylenol. not relieved. CT head does not show acute intracranial pathology. will place motrin prn. 3. DAR- likely due to infection vs dehydration. improved. 4. elevated BP- likely due to pain. will monitor if persists will start antihypertensives 5. R temporal artery bx- pt does not know results. elevated ESR. call placed out to PMD to obtian information. outpatient follow up 6. prostate ca- not on chemo/rtx 7. DVT ppx- EAM
[2017-06-14] MEDS ORDERED: IBUPROFEN 400 MG TABLET (FP) PO PRN (10:47)
--- NOTE | 2017-06-14 13:15 | PN ---
Physical Exam: SUBJECTIVE: Patient seen and examined No acute events overnight. Patient still complaining of headache and photophobia. Denies any new blurry vision or pain with EOM. OBJECTIVE: Vital Signs Period Temp Pulse Resp BP Sys/Patel Pulse Ox Last 24 Hr 97.9 F-100.6 F 52-66 17-18 130-177/65-79 95-95 GENERAL: Awake, alert, and fully oriented, in no mild distress HEENT: EOMI- no pain, No proptosis, preorbital edema, + frontal sinus tenderness , no maxilarry sinus tenderness LUNGS: Breath sounds equal, clear to auscultation bilaterally. No wheezes, and no crackles. No accessory muscle use. HEART: Regular rate and rhythm, normal S1 and S2 with murmur in rt upper sternal border. ABDOMEN: Soft, nontender, not distended, normoactive bowel sounds, no guarding UPPER EXTREMITIES: 2+ radial pulses, warm, well-perfused. No cyanosis. No clubbing. No peripheral edema. 5/5 hand skein drier LOWER EXTREMITIES: 1+ dp pulses, warm, well-perfused. No calf tenderness. No peripheral edema. NEUROLOGICAL: Cranial nerves II-XII intact. Normal speech. PSYCHIATRIC: Cooperative. Good eye contact. Appropriate mood and affect. Laboratory Results - last 24 hr 06/14/17 06/14/17 06:30 06:30 Sodium 141 Potassium 3.9 Chloride 106 Carbon Dioxide 27 Anion Gap 8 BUN 12 D Creatinine 1.3 Random Glucose 95 Hemoglobin A1c % 5.5 Calcium 8.6 Active Medications Generic Name Dose Route Start Last Admin Trade Name Freq PRN Reason Stop Dose Admin Acetaminophen 650 mg 06/13/17 01:01 06/14/17 07:09 Tylenol - PO 650 mg Q4H PRN Administration FEVER OR PAIN Guaifenesin 1 tablet 06/13/17 10:00 06/14/17 09:36 Mucinex Dm - PO 1 tablet BID RANDEE Administration Vancomycin HCl 250 mls @ 200 mls/hr 06/13/17 14:15 06/14/17 01:24 Vancomycin (Pre-Docked) IVPB 200 mls/hr BID@0200,1400 RANDEE Administration Ampicillin Sodium/Sulbactam 100 mls @ 200 mls/hr 06/13/17 15:00 06/14/17 09:35 Sodium 1.5 gm/ Sodium Chloride IVPB 200 mls/hr Q6H-IV RANDEE Administration Ibuprofen 400 mg 06/14/17 10:47 Motrin - PO Q6H PRN PAIN Pantoprazole Sodium 40 mg 06/13/17 13:45 06/14/17 09:35 Protonix - PO 40 mg DAILY RANDEE Administration ASSESSMENT/PLAN: 81 year old man with headaches, prostate cancer, HTN, presents with sinusitis and forehead soft tissue edema/cellulitis placed on observation for IV antibiotics and monitoring for orbital edema and ocular changes. #Preseptal cellulitis 2/2 to sinusitis -Improving -Patient switched to Vancomycin 1g and Unasyn 1.5 g -Cultures negative to date -Motrin 400 mg po q6 prn for pain -Mucinex 1 tablet po bid -ID on board ID consulted for further evaluation and need for vancomycin or de- escalation of abx. #DAR likely due to abx use/ or re-renal due to poor po intake -Improving -trend BMP #GERD -Pantoprazole 40 mg po daily Diet: Sodium controlled diet DVT; scd's, encourage early ambulation Visit type - Emergency Visit Emergency Visit: No - New Patient This patient is new to me today: Yes Date on this admission: 06/14/17 - Critical Care Critical Care patient: No
--- NOTE | 2017-06-14 14:15 | PN ---
Progress Note, Physician History of Present Illness: Improved Reports less forehead pain / swelling Decreased periorbital edema + low grade fever - Current Medication List Current Medications: Active Medications Acetaminophen (Tylenol -) 650 mg PO Q4H PRN PRN Reason: FEVER OR PAIN Last Admin: 06/14/17 07:09 Dose: 650 mg Guaifenesin (Mucinex Dm -) 1 tablet PO BID [facility] Last Admin: 06/14/17 09:36 Dose: 1 tablet Vancomycin HCl (Vancomycin (Pre-Docked)) 250 mls @ 200 mls/hr IVPB BID@0200, 1400 [facility] Last Admin: 06/14/17 13:51 Dose: 200 mls/hr Ampicillin Sodium/Sulbactam (Sodium 1.5 gm/ Sodium Chloride) 100 mls @ 200 mls/ hr IVPB Q6H-IV [facility] Last Admin: 06/14/17 09:35 Dose: 200 mls/hr Ibuprofen (Motrin -) 400 mg PO Q6H PRN PRN Reason: PAIN Pantoprazole Sodium (Protonix -) 40 mg PO DAILY [facility] Last Admin: 06/14/17 09:35 Dose: 40 mg - Objective Vital Signs: Vital Signs Temperature 97.9 F 06/14/17 10:00 Pulse Rate 56 L 06/14/17 10:00 Respiratory Rate 18 06/14/17 10:00 Blood Pressure 132/75 06/14/17 10:00 O2 Sat by Pulse Oximetry (%) 95 06/14/17 04:00 Constitutional: Yes: No Distress Eyes: Yes: Conjunctiva Clear HENT: Yes: Other (decreased forehead and periorbital edema) Cardiovascular: Yes: Regular Rate and Rhythm, S1, S2 Respiratory: Yes: CTA Bilaterally Gastrointestinal: Yes: Normal Bowel Sounds, Soft. No: Tenderness Edema: No Labs: CBC, BMP 06/13/17 06:00 06/14/17 06:30 Assessment/Plan Facial / periorbital cellulitis Sinusitis Clinically improved Continue empiric vancomycin/ unasyn ENT evaluation
[2017-06-15] MEDS: VANCOMYCIN 1 GRAM (PRE-DOCKED) 250 ML IVPB SCH ×3 (01:20→14:19)
[2017-06-15] MEDS: AMPICILLIN NA/SULBACTAM NA 1.5 GM in SODIUM CHLORIDE 100 ML IVPB SCH ×3 (02:44→16:54)
[2017-06-15 08:25] LABS: ANION GAP 8 (8-16); CALCIUM 8.3 mg/dL (8.5-10.1); CO2 28 mmol/L (21-32); CREATININE 1.3 mg/dL (0.7-1.3); GLUCOSE,RANDOM 93 mg/dL (74-106)
[2017-06-15] MEDS ORDERED: SODIUM CHLORIDE 100 ML IVPB ONE (09:47)
[2017-06-15] MEDS ORDERED: AMPICILLIN NA/SULBACTAM NA 1.5 GM VIAL ONE (09:47)
[2017-06-15] MEDS: PANTOPRAZOLE 40 MG TABLET (FP) PO SCH (09:51)
[2017-06-15] MEDS: guaiFENesin/D-METHORPHAN HB 1 EACH TAB.ER.12H PO SCH (09:51)
--- NOTE | 2017-06-15 10:20 | PN ---
Progress Note, Physician Chief Complaint: Alert NAD - Current Medication List Current Medications: Active Medications Acetaminophen (Tylenol -) 650 mg PO Q4H PRN PRN Reason: FEVER OR PAIN Last Admin: 06/14/17 07:09 Dose: 650 mg Guaifenesin (Mucinex Dm -) 1 tablet PO BID [facility] Last Admin: 06/15/17 09:51 Dose: 1 tablet Vancomycin HCl (Vancomycin (Pre-Docked)) 250 mls @ 200 mls/hr IVPB BID@0200, 1400 [facility] Last Admin: 06/15/17 01:20 Dose: 200 mls/hr Ampicillin Sodium/Sulbactam (Sodium 1.5 gm/ Sodium Chloride) 100 mls @ 200 mls/ hr IVPB Q6H-IV [facility] Last Admin: 06/15/17 09:52 Dose: 200 mls/hr Ibuprofen (Motrin -) 400 mg PO Q6H PRN PRN Reason: PAIN Last Admin: 06/14/17 21:24 Dose: 400 mg Pantoprazole Sodium (Protonix -) 40 mg PO DAILY [facility] Last Admin: 06/15/17 09:51 Dose: 40 mg - Objective Vital Signs: Vital Signs Temperature 98.7 F 06/15/17 08:33 Pulse Rate 62 06/15/17 08:33 Respiratory Rate 20 06/15/17 08:33 Blood Pressure 132/81 06/15/17 08:33 O2 Sat by Pulse Oximetry (%) 95 06/15/17 04:00 Constitutional: Yes: Well Nourished, No Distress HENT: Yes: WNL, Atraumatic, Normocephalic, Other (preseptal edema mild tenderness) Neck: Yes: WNL, Supple Cardiovascular: Yes: Regular Rate and Rhythm, S1, S2 Respiratory: Yes: WNL, Regular, CTA Bilaterally Gastrointestinal: Yes: WNL, Normal Bowel Sounds, Soft. No: Tenderness, Tenderness, Epigastrium Labs: CBC, BMP 06/13/17 06:00 06/15/17 06:30 Assessment/Plan Microbiology 06/12/17 21:30 Blood - Peripheral Venous Blood Culture - Preliminary NO GROWTH OBTAINED AFTER 48 HOURS, INCUBATION TO CONTINUE FOR 3 DAYS. 06/12/17 21:30 Blood - Peripheral Venous Blood Culture - Preliminary NO GROWTH OBTAINED AFTER 48 HOURS, INCUBATION TO CONTINUE FOR 3 DAYS. Laboratory Tests 06/13/17 06/15/17 06:00 06:30 WBC 5.3 RBC 3.62 L Plt Count 135 BUN 17 D Creatinine 1.3 Assessment Preseptal cellulitis Plan Can switch to po Ceftin 500mg bid 7 days [place]
--- NOTE | 2017-06-15 13:22 | PN ---
Teaching Attending Note Name of Resident: Chaparrita Fisher ATTENDING PHYSICIAN STATEMENT I saw and evaluated the patient. I reviewed the resident's note and discussed the case with the resident. I agree with the resident's findings and plan as documented. SUBJECTIVE:no longer having ROSALES. pain in face has resolved. states swelling significantly imrpoved. denies CP, SOB, fever, chills, N/V/C/D OBJECTIVE: Last Vital Signs Temp Pulse Resp BP Pulse Ox 98.7 F 62 20 132/81 96 06/15/17 08:33 06/15/17 08:33 06/15/17 08:33 06/15/17 08:33 06/15/17 12:00 General NAD HEENT EOMI. PERRL, minimal swelling noted superior to R eye, area not tender CV S1 S2 RRR no murmur/rub/gallop Lungs CTA b/l no wheezing/rales/rhonchi A/P 81yo M with PMH prostate ca and R temporal artery bx presented to the ER with forehead and eye swelling 1. Preseptal cellulitis- possible due to chronic sinusitis. clinically improved. will d/c on ceftin for additional 7 days of abx. will need ENT outpatient follow up. 2. ROSALES- likely due to pain. now resolved. 3. DAR- likely due to infection vs dehydration. improved. 4. elevated BP- likely due to pain.now normotensive 5. R temporal artery bx- pt does not know results. elevated ESR. outpatient follow up 6. prostate ca- not on chemo/rtx 7. DVT ppx- EAM 8. d/c home on abx to complete 10 day course
[2017-06-15 15:17] VITALS: BP 117/65; PULSE 61; TEMP 97.6
--- NOTE | 2017-06-15 15:41 | DS ---
Physical Exam: SUBJECTIVE: Patient seen and examined at bedside today. Pt states that he is feeling much better and no longer has a headache. Denies any vision changes or pain with ocular movement. OBJECTIVE: Vital Signs Period Temp Pulse Resp BP Sys/Patel Pulse Ox Last 24 Hr 97.6 F-98.9 F 54-62 18-20 117-156/65-84 95-96 PHYSICAL EXAM GENERAL: The patient is awake, alert, and fully oriented, in no acute distress. HEAD: decreased swelling and erythema, mildly tender to palpation on frontal area, sinuses mildly tender to palpation but much improved EYES: PERRL, extraocular movements intact, sclera anicteric, conjunctiva clear. NECK: Trachea midline, full range of motion, supple. LUNGS: Breath sounds equal, clear to auscultation bilaterally, no wheezes, no crackles, no accessory muscle use. HEART: Regular rate and rhythm, S1, S2 without murmur, rub or gallop. ABDOMEN: Soft, nontender, nondistended, normoactive bowel sounds, no guarding, no rebound, no hepatosplenomegaly, no masses. EXTREMITIES: 2+ posterior tibial pulses, warm, well-perfused, no edema. NEUROLOGICAL: Cranial nerves II through XII grossly intact. VITALS TREND/LABS Vitals Trend 06/12/17 06/13/17 06/13/17 19:34 02:00 03:42 Temperature 98.8 F 98.4 F 99.8 F H Pulse Rate 90 67 Respiratory 20 16 18 Rate Blood Pressure 140/62 153/77 06/13/17 06/13/17 06/13/17 04:19 06:25 09:08 Temperature 99.8 F H 99.2 F 98.1 F Pulse Rate 67 60 67 Respiratory 18 18 16 Rate Blood Pressure 153/77 159/84 135/73 06/13/17 06/13/17 06/13/17 12:00 15:23 18:00 Temperature 99.8 F H 97.9 F Pulse Rate 62 66 Respiratory 16 17 18 Rate Blood Pressure 149/77 177/79 06/13/17 06/13/17 06/14/17 20:00 23:00 02:05 Temperature 100.6 F H 98.3 F Pulse Rate 60 Respiratory 18 18 Rate Blood Pressure 130/65 06/14/17 06/14/17 06/14/17 04:00 06:00 10:00 Temperature 98.1 F 97.9 F Pulse Rate 52 L 56 L Respiratory 18 18 18 Rate Blood Pressure 159/77 132/75 06/14/17 06/14/17 06/14/17 15:14 20:00 23:00 Temperature 97.9 F Pulse Rate 53 L 54 L Respiratory 18 18 18 Rate Blood Pressure 144/85 156/76 06/15/17 06/15/17 06/15/17 01:46 04:00 07:52 Temperature 98.9 F 98.9 F Pulse Rate 58 L Respiratory 18 20 Rate Blood Pressure 152/84 06/15/17 06/15/17 08:33 15:15 Temperature 98.7 F 97.6 F Pulse Rate 62 61 Respiratory 20 18 Rate Blood Pressure 132/81 117/65 Laboratory Tests 06/12/17 06/12/17 06/13/17 20:55 21:00 06:00 WBC 5.4 Hgb 12.5 Hct 36.7 Plt Count 159 Monocytes % 19.9 H Sodium 143 143 Potassium 4.3 4.0 Chloride 108 H 109 H Carbon Dioxide 28 25 BUN 27 H D 19 H D Creatinine 1.5 H D 1.2 Random Glucose 116 H 105 Hemoglobin A1c % Calcium 9.0 8.2 L 06/13/17 06/14/17 06/14/17 06:00 06:30 06:30 WBC 5.3 Hgb 12.1 Hct 35.8 Plt Count 135 Monocytes % Sodium 141 Potassium 3.9 Chloride 106 Carbon Dioxide 27 BUN 12 D Creatinine 1.3 Random Glucose 95 Hemoglobin A1c % 5.5 Calcium 8.6 06/15/17 06:30 WBC Hgb Hct Plt Count Monocytes % Sodium 142 Potassium 4.1 Chloride 106 Carbon Dioxide 28 BUN 17 D Creatinine 1.3 Random Glucose 93 Hemoglobin A1c % Calcium 8.3 L IMAGING -06/12/17: CT/orbit CT without contrast: in comparison to a cranial CT study of , interval development of superficial soft tissue edema is seen along the forehead bilaterally, right more than left, also extending along the upper face. Extensive paranasal sinus disease is noted as discussed above, which is somewhat increased in comparison to the cranial CT exam. No definite intraorbital pathology is identified. -06/13/17: CXR: No acute pathology noted. No acute changes. Microbiology 06/12/17 21:30 Blood - Peripheral Venous Blood Culture - Preliminary NO GROWTH OBTAINED AFTER 48 HOURS, INCUBATION TO CONTINUE FOR 3 DAYS. 06/12/17 21:30 Blood - Peripheral Venous Blood Culture - Preliminary NO GROWTH OBTAINED AFTER 48 HOURS, INCUBATION TO CONTINUE FOR 3 DAYS. HOSPITAL COURSE: Date of Admission:06/13/17 Date of Discharge: 06/15/17 Admit diagnosis: preseptal cellulitis secondary to sinusitis Pre-admission course 81 y/o M with h/o headaches, prostate CA (2006), R temporal a. biopsy, who presented to ED with R forehead and b/l eyelid swelling for past 2 days. As per pt and daughter, in March, pt experienced increased pressure behind his eyes. He saw Dr. Munguia and a R temporal artery biopsy was done. Pt was given carbamezipine and soon after, he developed R sided forehead swelling. Pt thought this was most likely an allergy to medication. In April, pt developed a similar headache and R sided forehead swelling, came to the [facility] ED and was given benadryl and had a CT scan done of head, which was normal as per patient. In May, pt developed swelling once again after taking tramadol. He thus decided to see Dr. Austin earlier this week, who reviewed his most recent head CT 05/15, and he was concerned for sinusitis and cellulitis. Pt decided to come to ED because his R forehead and eyelid swelling still persisted for past 2 days. During these episodes, pt endorses blurry vision, frontal headache, dizziness, runny nose, productive cough with clear mucus. Denies N/V, dysuria, SOB, head trauma, ear infections. ER course was notable for: (1) NS 500mls (2) Vancomycin 1g one time (3) Unasyn 1.5 grams 100mls (4) Tylenol 1gram PO once Hospital course Pt was managed on floor for septal cellulitis secondary to sinusitis. As was evident on CT which revealed interval development of superficial soft tissue edema along the forehead bilaterally, right more than left,extending along the upper face. It revealed extensive paranasal sinus disease. In ED, pt received vancomycin 1g and unasyn 1.5grams one time, and then was transitioned to clindamycin 300mg IVPB, while still in ED. Pt then completed a three day course of vancomycin 1g and unasyn 1.5 g. During this time, pt used warm compresses to symptomatically relieve his pain, and mucinex 1 tablet BID for his congestion. Pt is being discharged on a seven day course of ceftin 500mg BID and will follow -up with his primary care physician and an ENT specialist in a week. Minutes to complete discharge: 32 Discharge Summary Reason For Visit: CELLULITITIS OF FACE,SINUSITIS,OSTEOMYELITIS Current Active Problems DAR (acute kidney injury) (Acute) Headache (Acute) Preseptal cellulitis (Acute) Sinusitis (Acute) GERD (gastroesophageal reflux disease) (Chronic) Prostate CA (Chronic) Condition: Stable - Instructions Diet, Activity, Other Instructions: You were recently in the hospital for a facial infection that involved your eye and sinuses. You may resume activity as tolerated. Please continue the following antibiotic, starting tomorrow: -Ceftin 500mg (1 capsule) twice a day by mouth for the next 7 days You can also put warm compresses on your forehead and eye for symptomatic relief. You can also take Mucinex 1 tablet twice a day for the next week to help with your congestion (if needed). You may resume your other home medications. Please follow-up with Dr. Munguia in a week, and an Ear Nose Throat physician, in a week as well. If you experience any changes in your vision, develop pain when moving your eyes , or develop any new symptoms, please go to the hospital. We hope you feel better soon. Referrals: Hernandez Munguia MD [Primary Care Provider] - Matthew Echevarria MD [Staff Physician] - Disposition: HOME - Home Medications Comprehensive Discharge Medication List: Ambulatory Orders Famotidine [Pepcid -] 40 mg PO BID 06/12/17 Cefuroxime Axetil [Ceftin -] 500 mg PO BID #14 tablet 06/15/17 Guaifenesin Dm [Mucinex Dm -] 1 tablet PO BID #14 tab 06/15/17 Ibuprofen [Motrin -] 400 mg PO Q6H PRN #0 tablet 06/15/17 This patient is new to me today: No Emergency Visit: No Critical Care patient: No - Discharge Referral Referred to [facility] No
== END 2017-06-15 16:41 | disposition home or self-care (01) | DRG 603 ==
LOC: JER 19:32 → JERBED 06-13 01:45 → J8W 06-13 03:38
PROVIDERS: ADMIT Internal Medicine; ATTEND Internal Medicine
DX: L03.213 Periorbital cellulitis (principal); N17.9 Acute kidney failure, unspecified; K21.9 Gastro-esophageal reflux disease without esophagitis; R51 Headache; I10 Essential (primary) hypertension; E86.9 Volume depletion, unspecified; J32.9 Chronic sinusitis, unspecified; C61 Malignant neoplasm of prostate
CPT/HCPCS: 36415; 70480-TC; 70486-TC; 71010-TC; 80048; 80053; 82570; 83036; 83935; 84300; 85025; 85027; 85651; 87040; 99283-25; G0480